=== PATIENT | male | born 1990 | race African-American/Black ===

== ENCOUNTER 2019-01-02 09:19 | Emergency (ER) | payer MEDICARE ==
[~2019-01-02] VITALS: Ht 185.4 cm; Wt 70.0 kg
[2019-01-02] MEDS ORDERED: IBUPROFEN 800MG TABLET PO ONE (10:15)
[2019-01-02 11:28] VITALS: BP 120/70
== END 2019-01-02 12:01 | disposition home or self-care (01) ==
LOC: EDBD 09:19 → ER 09:19
DX: S93.692A Other sprain of left foot, initial encounter (principal); S93.492A Sprain of other ligament of left ankle, initial encounter; V29.9XXA Motorcycle rider (driver) (passenger) injured in unspecified traffic accident, initial encounter; Y93.89 Activity, other specified; Y92.89 Other specified places as the place of occurrence of the external cause; Y99.8 Other external cause status
CPT/HCPCS: 29515; 73600; 73620; 99283